=== PATIENT | female | born 1985 | race Caucasian/White ===

== ENCOUNTER 2016-08-15 12:05 | Emergency (ER) | payer BC ==
--- NOTE | 2016-08-15 12:53 | UC ---
Truncal Trauma HPI - HPI Summary HPI Summary: 4 DAYS AGO WAS CARRYING A CHAIR WITH THE LEGS POINTING TOWARD HER. TRIPPED OVER A STOOL AND A CHAIR LEG IMPACTED INTO HER RIGHT RIB CAGE. PAIN HAS GOTTEN WORSE. WORSE WITH MVMT, COUGH AND DEEP INSPIRATION. - History Of Current Complaint Chief Complaint: UCUpperExtremity Stated Complaint: RIB INJURY Time Seen by Provider: 08/15/16 12:47 Hx Obtained From: Patient Hx Last Menstrual Period: 07/11 Onset/Duration: Sudden Onset, Lasting Days, Still Present Onset Of Pain: Immediate Severity Initially: Moderate Severity Currently: Moderate Pain Intensity: 8 Pain Scale Used: 0-10 Numeric Mechanism Of Injury: Blunt Trauma Aggravating Factor(s): Movement, Deep Breathing, Cough Alleviating factor(s): Rest Associated Signs And Symptoms: Negative: SOB, Chest Pain, Cough, Hematuria, Abdominal Pain, Fever, Nausea, Vomiting - Allergies/Home Medications Allergies/Adverse Reactions: Allergies Allergy/AdvReac Type Severity Reaction Status Date / Time Penicillins [PCN] Allergy Unknown Verified 08/15/16 12:29 Reaction Details Home Medications: Home Medications NK [No Home Medications Reported] 08/15/16 [History Confirmed 08/15/16] PMH/Surg Hx/FS Hx/Imm Hx Previously Healthy: Yes Endocrine History Of: Denies: Diabetes, Thyroid Disease Cardiovascular History Of: Denies: Cardiac Disorders, Hypertension Respiratory History Of: Denies: COPD, Asthma GI/ History Of: Denies: Ulcer - Surgical History Surgical History: Yes Surgery Procedure, Year, and Place: tooth removed lt upper jaw 2010 - Family History Known Family History: Negative: Hypertension - Social History Alcohol Use: Weekly Substance Use Type: None Smoking Status (MU): Heavy Every Day Tobacco Smoker Review of Systems Constitutional: Negative Skin: Bruising Respiratory: Negative Cardiovascular: Negative Gastrointestinal: Negative Musculoskeletal: Myalgia All Other Systems Reviewed And Are Negative: Yes Physical Exam Triage Information Reviewed: Yes Appearance: Well-Appearing, No Pain Distress, Well-Nourished Vital Signs: Initial Vital Signs Temp 97.3 F 08/15/16 12:23 Pulse 78 08/15/16 12:23 Resp 18 08/15/16 12:23 BP 113/64 08/15/16 12:23 Pulse Ox 100 08/15/16 12:23 Vital Signs Reviewed: Yes Eyes: Positive: Conjunctiva Clear ENT: Positive: Hearing grossly normal Neck: Positive: Supple Respiratory Exam: Normal Cardiovascular Exam: Normal Abdomen Description: Positive: Soft Musculoskeletal: Positive: Other: - BRUISING AND TTP RIGHT ANTEROLATERAL RIBCAGE Neurological: Positive: Alert Psychological: Positive: Normal Response To Family, Age Appropriate Behavior Skin: Positive: Other - BRUISING TO RIGHT RIBCAGE ANTEROLATERALLY. Negative: rashes Diagnostics - Radiology RIGHT RIB XRAYS Xray Interpretation: No Acute Changes Radiology Interpretation Completed By: Radiologist Truncal Trauma Course/Dx - Differential Dx/Diagnosis Provider Diagnoses: RIGHT RIB CONTUSION Discharge - Discharge Plan Condition: Stable Disposition: HOME Patient Education Materials: Rib Contusion (ED) Referrals: No Primary Care Phys,NOPCP [Primary Care Provider] - Additional Instructions: CALL THE NUMBER BELOW FOR ASSISTANCE IN ESTABLISHING WITH A PCP An additional resource available to assist in finding the appropriate physician for your health care needs is the [facility] ([facility]). You may contact them by calling [phone]. BE SURE TO TAKE DEEP BREATHS TO KEEP YOUR LUNGS EXPANDED. GO TO THE ER WITHOUT FAIL IF YOUR SYMPTOMS WORSEN OR DO NOT IMPROVE OVER THE NEXT 1-2 WEEKS OR IF YOU DEVELOP SHORTNESS OF BREATH, RAPID HEART RATE, ABDOMINAL PAIN OR ANY OTHER CONCERNING SYMPTOMS.
--- NOTE | 2016-08-15 13:40 | RAD ---
INDICATION: Right rib injury. TECHNIQUE: 5 views of the right ribs were obtained. FINDINGS: No fracture or significant focal osseous abnormality is seen. IMPRESSION: NO EVIDENCE FOR FRACTURE.
== END 2016-08-15 13:55 | disposition home or self-care (01) ==
LOC: UCEAST 12:05
DX: S20.211A Contusion of right front wall of thorax, initial encounter (principal); X58.XXXA Exposure to other specified factors, initial encounter; Y93.9 Activity, unspecified; Y92.9 Unspecified place or not applicable; Z88.0 Allergy status to penicillin; F17.210 Nicotine dependence, cigarettes, uncomplicated
CPT/HCPCS: 99201; G0463

== ENCOUNTER 2017-12-14 16:19 | Emergency (ER) | payer BC ==
[2017-12-14] MEDS ORDERED: Metoclopramide IV* 5 MG/ML 2 ML VIAL IV SLOW PU ONE (16:38)
[2017-12-14] MEDS ORDERED: NS 0.9% 1000 ML* 1,000 ML IV ONE (16:38)
--- NOTE | 2017-12-14 16:45 | ED ---
GI/ HPI - HPI Summary HPI Summary: 32F LMP november 04 at 5 weeks presents with vomiting for the past 3 days. She states she took an at home test on and it came back positive. She states that she has been having vomiting in the morning for past 3 days. She states today though she can not stop vomiting. She has not been able to keep water down. She denies any abdominal pain. no vaginal bleeding, cramping, or abnormal vaginal discharge. no diarrhea. no dysuria. has not been able to keep anything down today. no medical conditions. no cough or recent illness. also is requesting folic acid and vitamins. She will be seeing ob in december. - History of Current Complaint Chief Complaint: UCGI Time Seen by Provider: 12/14/17 16:30 Stated Complaint: VOMITING Hx Last Menstrual Period: 07/11 Pain Intensity: 0 - Allergy/Home Medications Allergies/Adverse Reactions: Allergies Allergy/AdvReac Type Severity Reaction Status Date / Time Penicillins Allergy Unknown Verified 12/14/17 16:30 Reaction Details PMH/Surg Hx/FS Hx/Imm Hx Endocrine/Hematology History: Denies: Hx Diabetes, Hx Thyroid Disease Cardiovascular History: Denies: Hx Hypertension Respiratory History: Denies: Hx Asthma, Hx Chronic Obstructive Pulmonary Disease (COPD) GI History: Denies: Hx Ulcer Musculoskeletal History: Reports: Other Musculoskeletal History - fx nose 2008 - Surgical History Surgery Procedure, Year, and Place: tooth removed lt upper jaw 2010 Infectious Disease History: No Infectious Disease History: Denies: Hx Hepatitis, Hx Human Immunodeficiency Virus (HIV), Traveled Outside the [place] in Last 30 Days - Family History Known Family History: Negative: Hypertension - Social History Alcohol Use: None Substance Use Type: Reports: None Smoking Status (MU): Light Every Day Tobacco Smoker Type: Cigarettes Review of Systems Negative: Fever Negative: Chest Pain Negative: Shortness Of Breath Positive: Vomiting, Nausea. Negative: Abdominal Pain, Diarrhea All Other Systems Reviewed And Are Negative: Yes Physical Exam Triage Information Reviewed: Yes Vital Signs On Initial Exam: Initial Vitals Temp Pulse Resp BP Pulse Ox 97.5 F 73 18 95/71 100 12/14/17 16:25 12/14/17 16:25 12/14/17 16:25 12/14/17 16:25 12/14/17 16:25 Vital Signs Reviewed: Yes Appearance: Positive: Well-Appearing Skin: Positive: Warm, Dry Head/Face: Positive: Normal Head/Face Inspection Eyes: Positive: Normal, Conjunctiva Clear ENT: Positive: Pharynx normal Respiratory/Lung Sounds: Positive: Clear to Auscultation, Breath Sounds Present Cardiovascular: Positive: Normal, RRR Abdomen Description: Positive: Nontender, Soft Bowel Sounds: Positive: Present Musculoskeletal: Positive: Normal Neurological: Positive: Normal Psychiatric: Positive: Normal Diagnostics - Vital Signs Vital Signs Temp Pulse Resp BP Pulse Ox 12/14/17 16:25 97.5 F 73 18 95/71 100 - Laboratory Lab Statement: Any lab studies that have been ordered have been reviewed, and results considered in the medical decision making process. Re-Evaluation - Re-Evaluation First Eval Re-Evaluation Time: 17:26 Change: Improved Comment: feeling better after fluids and reglan GIGU Course/Dx - Course Course Of Treatment: 32F LMP november 04 presents with vomiting for the past 3 days. She states she took an at home test on and it came back positive. She states that she has been having vomiting in the morning for 3 days. She states today though she can not stop vomiting. She denies any abdominal pain. no vaginal bleeding. no diarrhea. no dysuria. has not been able to keep anything down today. no medical conditions. no cough or recent illness. on exam abd soft nontender. gave reglan and fluids and feeling better. will prescribe diclegis and reglan for break through vomiting. urine was positive. urine: negative for infection. patient understand and agrees with plan. - Diagnoses Differential Diagnoses - Female: , Urinary Tract Infection, Vomiting Provider Diagnoses: Vomiting during Discharge - Sign-Out/Discharge Documenting (check all that apply): Discharge/Admit/Transfer - Discharge Plan Condition: Good Disposition: HOME Prescriptions: Doxylamine/Pyridoxine(NF) [Diclegis (NF)] 2 tab PO BEDTIME #30 tab Folic Acid TAB* [Folvite TAB*] 1 mg PO DAILY #30 tab Metoclopramide TAB* [Reglan TAB*] 10 mg PO Q6H PRN #20 tab PRN Reason: Vomiting Vitamin TAB* 1 tab PO DAILY #30 tab Referrals: No Primary Care Phys,NOPCP [Primary Care Provider] - Additional Instructions: Take Diclegis two tablets at bedtime on day 1 and 2; if symptoms persist, take 1 tablet in morning and 2 tablets at bedtime on day 3; if symptoms persist, may increase to 1 tablet in morning, 1 tablet mid-afternoon, and 2 tablets at bedtime on day 4, max 4 tablets a day Take reglan every 6 hours for break through vomiting until Diclegis starts to work Eat a small snack throughout the day, drink liquids as tolerated Follow up with obgyn Return to ED if develop any new or worsening symptoms - Billing Disposition and Condition Condition: GOOD Disposition: HOME
== END 2017-12-14 17:35 | disposition home or self-care (01) ==
LOC: UCEAST 16:19
DX: O21.9 Vomiting of pregnancy, unspecified (principal); O99.331 Smoking (tobacco) complicating pregnancy, first trimester; F17.210 Nicotine dependence, cigarettes, uncomplicated; Z3A.01 Less than 8 weeks gestation of pregnancy; Z88.0 Allergy status to penicillin
CPT/HCPCS: 81003; 84702; 96360; 96374; 99212; G0463; J2765

== ENCOUNTER 2018-01-19 20:32 | Emergency (ER) | payer BC ==
[2018-01-19 20:52] VITALS: BP 105/60
[2018-01-19] MEDS ORDERED: Tetan/Diph/Pertus SYR(Tdap)* 0.5 ML SYR(BOOSTRIX) use SYR IM ONE (21:08)
[2018-01-19] MEDS ORDERED: Mupirocin 2% OINT* TUBE TOPICAL ONE (21:09)
--- NOTE | 2018-01-19 21:19 | UC ---
Hip/Pelvis Pain - HPI Summary HPI Summary: This is a 32-year-old female that presents here for the evaluation of 2 puncture wounds in her right lateral thigh. She was spurred by a rooster at approximately 2 PM today. Her last tetanus shot was approximately 8-10 years ago. He is almost 11 weeks . She was told she has a penicillin allergy. Her mother recalls no specifics concerning her reaction. - History Of Current Complaint Chief Complaint: UCGeneralIllness Stated Complaint: PUNCTURE WOUND Time Seen by Provider: 01/19/18 20:41 Hx Obtained From: Patient Hx Last Menstrual Period: 07/11 Onset/Duration: Sudden Onset Timing: Constant Severity Initially: Moderate Severity Currently: Mild Pain Intensity: 2 Pain Scale Used: 0-10 Numeric Location: Discrete At: Character Of Pain: Aching Aggravating Factor(s): Other - touch Alleviating Factor(s): Nothing Associated Signs And Symptoms: Positive: Other - tender - Allergies/Home Medications Allergies/Adverse Reactions: Allergies Allergy/AdvReac Type Severity Reaction Status Date / Time Penicillins Allergy Unknown Verified 12/14/17 16:30 Reaction Details PMH/Surg Hx/FS Hx/Imm Hx Previously Healthy: Yes - Surgical History Surgical History: None Surgery Procedure, Year, and Place: tooth removed lt upper jaw 2010 - Family History Known Family History: Negative: Hypertension - Social History Alcohol Use: None Substance Use Type: None Smoking Status (MU): Former Smoker Type: Cigarettes Have You Smoked in the Last Year: Yes When Did the Patient Quit Smoking/Using Tobacco: WHEN SHE FOUND OUT SHE WAS - Immunization History Most Recent Tetanus Shot: 9875-1105 Review of Systems Constitutional: Negative Skin: Negative Eyes: Negative ENT: Negative Respiratory: Negative Cardiovascular: Negative Gastrointestinal: Negative Genitourinary: Negative Motor: Negative Neurovascular: Negative Musculoskeletal: Myalgia Neurological: Negative Psychological: Negative Is Patient Immunocompromised?: No All Other Systems Reviewed And Are Negative: Yes Physical Exam Triage Information Reviewed: Yes Appearance: Well-Appearing, No Pain Distress, Well-Nourished Vital Signs: Initial Vital Signs Temp 98.4 F 01/19/18 20:42 Pulse 77 01/19/18 20:42 Resp 16 01/19/18 20:42 BP 105/60 01/19/18 20:42 Pulse Ox 100 01/19/18 20:42 Vital Signs Reviewed: Yes Eyes: Positive: Conjunctiva Clear ENT: Positive: Hearing grossly normal. Negative: Nasal congestion, Nasal drainage, Trismus, Muffled voice, Dental tenderness Dental Exam: Normal Neck: Positive: Supple Respiratory: Positive: Lungs clear, Normal breath sounds, No respiratory distress, No accessory muscle use Cardiovascular: Positive: RRR Musculoskeletal: Positive: ROM Intact, No Edema Neurological: Positive: Alert Psychological Exam: Normal Skin Exam: Other - see image Hip Injury Course/Dx - Differential Dx/Diagnosis Provider Diagnoses: two right thigh puncture wounds Discharge - Sign-Out/Discharge Documenting (check all that apply): Discharge/Admit/Transfer - Discharge Plan Condition: Stable Disposition: HOME Prescriptions: Cephalexin CAP* [Keflex CAP*] 500 mg PO QID #12 cap Patient Education Materials: Puncture Wound (ED) Referrals: No Primary Care Phys,NOPCP [Primary Care Provider] - Additional Instructions: these wounds are at risk for infection GET CHECKED FELIX FOR: increased pain increased swelling redness fever you should also get rechecked in 3 days if not better warm soapy compresses 3x day apply bactroban - Billing Disposition and Condition Condition: STABLE Disposition: Home Images Front/Back of Body, Lg ([place]): 1 - PW 2 - PW
== END 2018-01-19 21:39 | disposition home or self-care (01) ==
LOC: UCCORT 20:32
DX: O26.91 Pregnancy related conditions, unspecified, first trimester (principal); Z3A.11 11 weeks gestation of pregnancy; S71.131A Puncture wound without foreign body, right thigh, initial encounter; X58.XXXA Exposure to other specified factors, initial encounter; Y93.9 Activity, unspecified; Y92.007 Garden or yard of unspecified non-institutional (private) residence as the place of occurrence of the external cause; Z88.0 Allergy status to penicillin; Z87.891 Personal history of nicotine dependence
CPT/HCPCS: 90471; 90715; 99212; G0463

== ENCOUNTER 2018-03-11 19:58 | Emergency (ER) | payer BC, MEDICAID ==
--- NOTE | 2018-03-11 20:15 | UC ---
General HPI - HPI Summary HPI Summary: The patient is a 32 y/o F presenting to [facility] c/o not feeling well starting tonight after waking up from a nap. She had eaten two chicken salad sandwiches, which her also ate, and then she lied down for a nap. She woke up, let her dogs out, and then started feeling unwell. She had a burning sensation in her throat, and she had extreme nausea. On her way to [facility], she had lower back pain and had a pale pallor. In the parking lot, she vomited, and she has since been dry heaving. She is currently feeling better and is not in pain, but she feels dehydrated. She is 18 weeks with her first child and reports that she hasn't had any recent episodes of morning sickness because it has subsided. She had an appt with her PAYMENT SPECIALIST a week ago and an appt with a mother' s group yesterday, both of which confirmed that the baby is healthy. She also had labs drawn yesterday and everything came back normal. She has been able to feel the baby move, but she hasn't felt as much activity in the last week. She denies diarrhea (nml BM today), dysuria, and vaginal bleeding or discharge. - History of Current Complaint Stated Complaint: VOMITING Time Seen by Provider: 03/11/18 20:02 Hx Obtained From: Patient Hx Last Menstrual Period: 07/11 Onset/Duration: Sudden Onset, Lasting Hours, Still Present Onset Severity: Moderate Current Severity: Mild Aggravating: nothing Alleviating: nothing Associated Signs & Symptoms: Positive: Nausea, Vomiting - and dry heaves, Other - POSITIVE: burning sensation in throat, lower back pain, pale skin, dehydration ; NEGATIVE: dysuria, vaginal bleeding or discharge. Negative: Diarrhea, Dysuria - Allergy/Home Medications Allergies/Adverse Reactions: Allergies Allergy/AdvReac Type Severity Reaction Status Date / Time Penicillins Allergy Unknown Verified 12/14/17 16:30 Reaction Details PMH/Surg Hx/FS Hx/Imm Hx Other Endocrine History: NEGATIVE: diabetes Other Cardiovascular History: Mild murmur - Surgical History Surgical History: None Surgery Procedure, Year, and Place: tooth removed lt upper jaw 2010 - Family History Known Family History: Negative: Hypertension - Social History Alcohol Use: None Substance Use Type: None Smoking Status (MU): Former Smoker Type: Cigarettes Have You Smoked in the Last Year: Yes When Did the Patient Quit Smoking/Using Tobacco: WHEN SHE FOUND OUT SHE WAS - Immunization History Most Recent Tetanus Shot: 1084-8910 Review of Systems Constitutional: Other - dehydration Skin: Other - pale pallor ENT: Other - burning sensation in esophagus Gastrointestinal: Vomiting, Nausea, Other - POSITIVE: dry heaving; NEGATIVE: diarrhea Genitourinary: Other - NEGATIVE: vaginal bleeding or discharge, dysuria Musculoskeletal: Other: - low back pain All Other Systems Reviewed And Are Negative: Yes Physical Exam - Summary Physical Exam Summary: General: mildly ill-appearing, no pain distress Skin: warm, color reflects adequate perfusion, dry Head: normal Eyes: EOMI, DUSTY ENT: normal Neck: supple, nontender Respiratory: CTA, breath sounds present Cardiovascular: RRR Abdomen: soft, nontender, 18 weeks , tender over uterus Bowel: present Musculoskeletal: normal, strength/ROM intact Neurological: sensory/motor intact, A&O x3 Psychological: affect/mood appropriate Triage Information Reviewed: Yes Vital Signs Reviewed: Yes Course/Dx - Course Course Of Treatment: Medications reviewed. Allergies noted. FEELS IMPROVED AFTER VOMITING. DISCUSSED GOING TO THE EMERGENCY DEPARTMENT FOR EVALUATION OF HER CONDITION AND WELL BEING. NO U/S HERE IN CLINIC. MINIMAL LOWER ABD TENDERNESS TO PALPATION. NO VAGINAL DISCHARGE OR BLEEDING. NO DYSURIA; PATIENT REPORTS NORMAL UA YESTERDAY. SHE DECLINES FURTHER TREATMENT; IV FLUIDS OR ANTIEMETIC MEDICATION SHE FEELS IMPROVED. HER PLAN IS TO F/U IN THE AM WITH OBGYN; THEY WILL GO TO THE ED TONIGHT IF ANY FURTHER CONCERNS. - Differential Dx - Multi-Symptom Provider Diagnoses: VOMITING IN Discharge - Sign-Out/Discharge Documenting (check all that apply): Patient Departure - Patient will be discharged home. - Discharge Plan Condition: Stable Disposition: HOME Patient Education Materials: Nausea and Vomiting in (ED) Referrals: [facility] [Provider Group] [facility] [Outside] Additional Instructions: FOLLOW UP WITH YOUR OBGYN. GO DIRECTLY TO THE EMERGENCY DEPARTMENT FOR ANY WORSENING OF YOUR CONDITION OR QUESTIONS OR CONCERNS ABOUT YOURSELF OR YOUR . - Billing Disposition and Condition Condition: STABLE Disposition: Home Attestation Statement Scribe Attestation: This is eyal Maciel documenting for attending Dr. Lobo Martino MD. User Type: Provider with Scribe Provider Attestation: The documentation recorded by the scribe accurately reflects the service I personally performed and the decisions made by me.
[2018-03-11 20:19] VITALS: BP 110/65
== END 2018-03-11 20:50 | disposition home or self-care (01) ==
LOC: UCEAST 19:58
DX: O21.0 Mild hyperemesis gravidarum (principal); R07.0 Pain in throat; M54.5 Low back pain; Z3A.18 18 weeks gestation of pregnancy; Z88.0 Allergy status to penicillin; Z87.891 Personal history of nicotine dependence
CPT/HCPCS: 99211; G0463

== ENCOUNTER 2018-05-10 10:01 | Emergency (ER) | payer BC, MEDICAID ==
[2018-05-10 10:10] VITALS: BP 110/48
--- NOTE | 2018-05-10 12:03 | UC ---
Throat Pain/Nasal Cruz HPI - HPI Summary HPI Summary: 32-year-old woman comes in with a complaint of fever chills runny nose sore throat and cough. This all started yesterday. She vomited this morning. She is 26 weeks . She has been feeling her baby move normally she has no dysuria or vaginal discharge. She also has a headache. She did not take any medication because she is . - History of Current Complaint Chief Complaint: UCRespiratory Stated Complaint: , VOMITING, FEVER, AND SORE THROAT Time Seen by Provider: 05/10/18 11:42 Hx Last Menstrual Period: 07/11 Pain Intensity: 1 - Allergies/Home Medications Allergies/Adverse Reactions: Allergies Allergy/AdvReac Type Severity Reaction Status Date / Time Penicillins Allergy Unknown Verified 05/10/18 10:10 Reaction Details PMH/Surg Hx/FS Hx/Imm Hx Previously Healthy: Yes - Surgical History Surgical History: None Surgery Procedure, Year, and Place: tooth removed lt upper jaw 2010 - Family History Known Family History: Negative: Hypertension - Social History Alcohol Use: None Substance Use Type: None Smoking Status (MU): Former Smoker Type: Cigarettes Have You Smoked in the Last Year: Yes When Did the Patient Quit Smoking/Using Tobacco: WHEN SHE FOUND OUT SHE WAS - Immunization History Most Recent Tetanus Shot: 7387-0296 Review of Systems Constitutional: Fever, Chills Skin: Negative Eyes: Negative ENT: Sore Throat, Nasal Discharge, Sinus Congestion Respiratory: Negative Cardiovascular: Negative Gastrointestinal: Vomiting Motor: Negative Neurovascular: Negative Musculoskeletal: Negative Neurological: Negative Psychological: Negative Is Patient Immunocompromised?: No All Other Systems Reviewed And Are Negative: Yes Physical Exam Triage Information Reviewed: Yes Appearance: No Pain Distress, Well-Nourished, Ill-Appearing - MILD Vital Signs: Initial Vital Signs Temp 98.2 F 05/10/18 10:06 Pulse 101 05/10/18 10:06 Resp 18 05/10/18 10:06 BP 110/48 05/10/18 10:06 Pulse Ox 98 05/10/18 10:06 Vital Signs Reviewed: Yes Eye Exam: Normal Eyes: Positive: Conjunctiva Clear ENT: Positive: Pharyngeal erythema, Nasal congestion, Nasal drainage, TMs normal Neck exam: Normal Neck: Positive: Supple Respiratory: Positive: Lungs clear, Normal breath sounds, No respiratory distress Cardiovascular: Positive: RRR Abdomen Description: Positive: Nontender, Other: - 26 weeks Bowel Sounds: Positive: Present Musculoskeletal Exam: Normal Musculoskeletal: Positive: Strength Intact, ROM Intact Neurological Exam: Normal Neurological: Positive: Alert, Muscle Tone Normal Psychological Exam: Normal Psychological: Positive: Normal Response To Family, Age Appropriate Behavior Skin Exam: Normal Throat Pain/Nasal Course/Dx - Course Course Of Treatment: Rapid strep was negative. We discussed treatment with Reglan for nausea and acetaminophen for the pain. Patient declined a Reglan she prefers to try debbi for the nausea. Has viral versus bacterial infections. At this time with a negative rapid strep we will treat this as a viral infection. Patient will follow up with her CRYSTAL[facility]ER OPERATOR or return here sooner if needed. - Differential Dx/Diagnosis Provider Diagnoses: Upper respiratory tract infection. VOMITING Discharge - Sign-Out/Discharge Documenting (check all that apply): Patient Departure All imaging exams completed and their final reports reviewed: No Studies - Discharge Plan Condition: Stable Disposition: HOME Patient Education Materials: Upper Respiratory Infection (ED), Nausea and Vomiting in (ED) Referrals: [facility] [Outside] Additional Instructions: FOLLOW UP WITH YOUR DOCTOR IF NOT COMPLETELY IMPROVED. GET RECHECKED FOR ANY WORSENING OF YOUR CONDITION OR QUESTIONS OR CONCERNS. - Billing Disposition and Condition Condition: STABLE Disposition: Home
== END 2018-05-10 12:09 | disposition home or self-care (01) ==
LOC: UCEAST 10:01
DX: O98.812 Other maternal infectious and parasitic diseases complicating pregnancy, second trimester (principal); J06.9 Acute upper respiratory infection, unspecified; Z88.0 Allergy status to penicillin; Z87.891 Personal history of nicotine dependence; Z3A.26 26 weeks gestation of pregnancy
CPT/HCPCS: 87651; 99211; G0463

== ENCOUNTER 2018-08-14 06:05 | Inpatient (IN) | payer BC, MEDICAID ==
[2018-08-14] MEDS ORDERED: Lactated Ringers 1000 ML Bag* 1,000 ML IV ONE ×2 (07:14→17:10)
[2018-08-14] MEDS ORDERED: Buffered Lidocaine 1% SYRIN* 1 ML/SYRINGE INTRADERM ONE (07:14)
--- NOTE | 2018-08-14 07:26 | HP ---
General Information - Reason for Visit Patient reported leaking fluid since last night approx 1999. Mild cramping. - General Information Maternal Age: 32 Grav: 2 Para: 0 SAB: 0 IEA: 1 Estimated Due Date: 08/11/18 Determined By: LMP Maternal Blood Type and Rh: O Positive - Results this Serology/RPR Result: Non-Reactive Rubella Result: Immune HBsAg Result: Negative HIV Result: Negative GBS Culture Result: Negative Past Medical History Delivery History: See Records Delivery History Comment: No previous term pregnancies Pertinent Past Medical History: See Records Past Medical History Comment: depression/anxiety alcoholism, sober since 11/10 Ulcers, not currently a problem Pertinent Past Surgical History: None Pertinent Family History: Non-Contributory Family History Comment: breast ca liver ca pancreatitis heart dz - Antepartal Records Antepartal Records: Reviewed, Complicated by: - LSIL Pap, normal on repeat. [facility] Z[place] testing negative. Review of Systems Constitutional: Comfortable CV Complaint: No Respiratory: Shortness of Breath: No Gastrointestinal: No Nausea/Vomiting, Normal Bowel Movement Genitourinary: Leaking Fluid, No Dysuria, No Bleeding Musculoskeletal: No Complaint Neurological: No Headache, No Visual Changes Movement: Normal Exam Allergies/Adverse Reactions: Allergies Penicillins Allergy (Verified 05/10/18 10:10) Unknown Reaction Details Vital Signs 08/14/18 06:38 Temperature 97.3 F Pulse Rate 87 Respiratory 18 Rate Blood Pressure 131/77 (mmHg) O2 Sat by Pulse 99 Oximetry Lab Values - Entire Visit: Laboratory Tests 08/14/18 06:15 Vag Amniotic Fld Detect Positive - Measurements Height: 5 ft 3 in Weight: 157 lb Weight in lbs: 157.612015 Body Mass Index (BMI): 27.8 Pre- Weight: 105 lb - Exam Breast: Breast Exam Deferred CVA: No CVA Tenderness Extremities: No Edema Heart: Normal Rhythm/Heart Sounds HEENT: No Significant Findings Lungs: Clear Bilaterally Rectal: Rectal Exam Deferred Reflexes: - - DTR 1+, no clonus Thyroid: - - WNL @ entry to care - Abdominal Exam Abdomen Exam: Non-Tender, Fundal Height Consistent with Dates - Ultrasound/Biophysical Profile Ultrasound Status: Not Done Targeted Exam Findings See L&D Outpatient Visit Provider Note for Findings: N/A Estimated Weight: 7.5lb Cervical Exam: 2cm Effacement: 90% Station: 0 Presenting Part: Vertex Membrane Status: Leaking Amniotic Fluid Evaluation: Positive ROM Plus Bleeding/Discharge: None EFM Findings - External Monitor Findings Baseline Heart Rate: 125 External Monitor Findings: Accelerations Present, No Pattern of Variable or Late Decelerations, Variability Moderate Contractions: Irregular, Mild, < 45 Seconds Contraction Frequency: Q3-7 min Assessment/Plan - Assessment IUP @ 40+3 weeks gestation with ruptured membranes. No evidence metabolic acidemia. Latent labor. - Plan Plan: Admit - Anticipate Vaginal Delivery Plan Comment: Admit to L&D. Given timeframe of rupture, suggest augmentation with pitocin, PARQ discussion and patient in agreement. Would like to wait "as long as possible" for pain medication but open to epidural if desired. Anticipate SVB - Date/Time of Admission Date of Admission: 08/14/18 Time of Admission: 06:57
[2018-08-14] MEDS ORDERED: Oxytocin in LR* 20 UNITS/1,000 ML BAG IVPB SCH (08:00)
[2018-08-14 09:06] LABS: ABS Basophils 0.1 10^3/ul (0-0.2); ABS Eosinophils 0.1 10^3/ul (0-0.6); ABS Lymphocytes 1.4 10^3/ul (1.0-4.8); ABS Monocytes 0.7 10^3/ul (0-0.8); ABS Neutrophils 8.8 10^3/ul (1.5-7.7); ABS Nucleated RBC 0 10^3/ul; Eosinophil % 0.7 %; Hematocrit 31 % (35-47); Hemoglobin 10.6 g/dl (12.0-16.0); Lymphocyte % 12.6 %; Mean Corpuscular HGB Conc 34 g/dl (31-36); Mean Corpuscular Hemoglobin 32 pg (27-31); Mean Corpuscular Volume 93 fL (80-97); Mean Platelet Volume 8.9 fL (7.4-10.4); Nucleated Red Blood Cells % 0; Platelet Count 258 10^3/ul (150-450); Red Blood Count 3.34 10^6/ul (4.00-5.40); Red Cell Distribution Width 14 % (10.5-15); White Blood Count 11.1 10^3/ul (3.5-10.8)
[2018-08-14] MEDS: Famotidine TAB* 20 MG PO PRN (09:53)
[2018-08-14] MEDS: Lactated Ringers 1000 ML Bag* 1,000 ML IV SCH ×2 (09:56→17:06)
--- NOTE | 2018-08-14 10:23 | PN ---
Progress Note - Progress Note Date of Service: 08/14/18 SOAP: Subjective: Pt comfortable through ctx, increasingly aware of them but coping well. She reports feeling anxious and nervous about labor and . She reports being particularly nervous about tearing during delivery. Reassurance provided, discussed gentle pushing with to allow perineum to stretch. Objective: Cervical exam deferred FHR Cat I-135, + accels, no decels, moderate variability UCs 2-4 minutes, mild to moderate per palpation Pitocin at 4 mu/ min Clear fluid ROM 16 hours Temp- 97.0 Assessment: 32 year old at 40 3/7 weeks gestation undergoing augmentation of labor for prelabor rupture of membranes, no evidence of chorioamnionitis, no evidence of acidemia Plan: Continue Pitocin augmentation Continue to monitor for signs of infection Will wait to recheck cervix for now unless pt desiring pain medication, or experiencing urge to push
--- NOTE | 2018-08-14 13:33 | PN ---
Progress Note - Progress Note Date of Service: 08/14/18 SOAP: Subjective: Pt increasingly uncomfortable with ctx. Pt used tub with some relief, but requested something else for pain. After discussing options, pt elects trial of nitrous oxide. Objective: Cervix: 3-4 cm/ 80%/ +1 station Ctx:2-3 minutes, lasting 90 seconds FHR: 135 baseline, moderate variability, + accels, no decels Fluid clear, ROM 18 hours Assessment: 32 year old with prelabor rupture of membranes, in active labor, no evidence of acidemia Plan: Pitocin turned off, can restart if ctx space out too much. Nitrous oxide per protocol Epidural if desired
--- NOTE | 2018-08-14 15:02 | PN ---
Progress Note - Progress Note Date of Service: 08/14/18 SOAP: Subjective: [] Objective: [] Assessment: [] Plan: []
--- NOTE | 2018-08-14 16:04 | PN ---
Progress Note - Progress Note Date of Service: 08/14/18 Note: Pt more uncomfortable. Cervix: 5cm/ 100%/ +1 station. FHR Cat I. Pt requesting epidural. Dr. Dexter notified.
[2018-08-14] MEDS ORDERED: OBEPIDURAL* 250 ML EPIDURAL ONE (16:09)
[2018-08-14] MEDS ORDERED: Phenylephrine IV* 40 MCG/ML 10 ML SYRINGE ONE (16:54)
[2018-08-14] MEDS ORDERED: Famotidine TAB* 20 MG PO PRN (17:10)
[2018-08-14] MEDS ORDERED: EPHEDrine (Pressors)* 50 MG/ML VIAL IV PUSH PRN ×2 (17:10)
[2018-08-14] MEDS ORDERED: Phenylephrine IV* 40 MCG/ML 10 ML SYRINGE IV PUSH PRN ×2 (17:10)
[2018-08-14] MEDS ORDERED: Sodium Citrate/Citric Acid* 15 ML UDC PO PRN (17:10)
--- NOTE | 2018-08-14 17:53 | PN ---
Progress Note - Progress Note Date of Service: 08/14/18 SOAP: Subjective: Pt very comfortable with epidural, going to try to sleep. Objective: FHR: baseline 140, moderate variability, + accels, no decels UCs 3-5 minutes Cervical exam deferred Clear fluid Temp 97.8 Assessment: Pt comfortable with epidural, no evidence of acidemia. Prelabor rupture of membranes, no evidence of chorioamnionitis. Plan: Pt to try to rest. Will consider Pitocin as needed. Anticipate .
[2018-08-14] MEDS ORDERED: Lactated Ringers 1000 ML Bag* 1,000 ML IV SCH (18:00)
--- NOTE | 2018-08-14 20:41 | PN ---
Progress Note - Progress Note Date of Service: 08/14/18 SOAP: Subjective: Pt comfortable overall. Had episode of vomiting but now feels okay. Reports some increased pressure with ctx. Most recent exam by RN found pt to be 8cm. Objective: FHR: baseline 140/ no accels/ some early decels/moderate variability UCs: 2-4 minutes Clear fluid, ruptured > 24 hours Temp 98.8 Assessment: 32 year old in active labor with prolonged rupture of membranes, no evidence of chorioamnionitis, no evidence of acidemia. Plan: Continue expectant management, will begin pushing when pt fully dilated. Anticipate .
[2018-08-14] MEDS ORDERED: Ondansetron INJ* 2 MG/ML VIAL IV ONE (23:06)
[2018-08-14] MEDS ORDERED: Ondansetron INJ* 2 MG/ML VIAL ONE (23:14)
--- NOTE | 2018-08-14 23:31 | PN ---
Progress Note - Progress Note Date of Service: 08/14/18 SOAP: Subjective: Pt reports increased pressure, including rectal pressure. Denies urge to push. Pt also reports significant nausea, unresolved even after vomiting. Objective: Cervix: 9cm/ 100%/ +1 FHR: Baseline 150/ moderate variability/ + accels/ isolated variable decel and intermittent early decels UCs: 2-3 minutes Clear fluid Assessment: 32 year old at 40 3/7 weeks gestation, in active labor, almost ready to push. Plan: Will recheck cervix in 1 hour or when pt experiences urge to push. Anticipate .
--- NOTE | 2018-08-15 01:02 | PN ---
Progress Note - Progress Note Date of Service: 08/15/18 SOAP: Subjective: Pt very nauseous, especially immediately after each push. Pushing with good effort. Objective: FHR: baseline 160, with intermittent early, late and variable decelerations UCs Q 1-3 minutes Moderate descent with pushing noted. Temp 99.5 Assessment: Pt pushing effectively, but she is fatigued. FHR baseline rising but still within normal range. Temperature within normal range but increased from previous. Normal fatigue vs early signs of infection. Plan: Continue pushing with support and encouragement. Continue to monitor temperature.
--- NOTE | 2018-08-15 04:09 | PN ---
Progress Note - Progress Note Date of Service: 08/15/18 Note: Called to assist with repair of partial 3rd degree perineal tear. The severed fibers of the capsule were reapproximated with a [id number] suture of 3-0 vicryl. The rest of the repair was then done with 3-0 vicryl in the usual fashion. Good hemostasis at end of repair.
[2018-08-15] MEDS ORDERED: Dibucaine 1% 28.35 GM TUBE PR PRN (05:17)
[2018-08-15] MEDS ORDERED: Glycerin ADULT SUPP PR PRN (05:17)
[2018-08-15] MEDS ORDERED: Witch Hazel PAD* JAR TOPICAL PRN (05:17)
[2018-08-15] MEDS ORDERED: Lactated Ringers 1000 ML Bag* 1,000 ML IV SCH (06:00)
[2018-08-15] MEDS ORDERED: Oxytocin in LR* 20 UNITS/1,000 ML BAG IVPB SCH (06:00)
[2018-08-15] MEDS: Ibuprofen TAB* 600 MG PO PRN ×3 (07:53→22:57)
[2018-08-15] MEDS: Docusate CAP* 100 MG PO SCH ×3 (07:53→22:57)
[2018-08-15] MEDS: Famotidine TAB* 20 MG PO PRN (07:53)
--- NOTE | 2018-08-15 11:38 | PROCNOTE ---
[facility] OB: Delivery Note - Delivery A Date of : 08/15/18 Time of : 03:31 [place] Sex: Male Weight at : 3.62 kg Score 1 Minute: 8 Score 5 Minutes: 9 Gestational Age in Weeks and Days at Delivery: 40 Weeks and 4 Days Delivery Method: Spontaneous Vaginal Labor: Spontaneous Did Patient attempt ?: N/A, No Previous Amniotic Fluid: Clear Anesthesia/Analgesia: CEI for Labor Delivered By: Cathy Gage - Nursery Level of Nursery: Regular/Bedside - Perineum Perineal Injury: 3rd Degree Extension Perineal Repair: Dr. Olivas - Events Delivery Events of Note: Pitocin During Labor, Pushed > 3 Hours, ROM > 24 Hours - Additional Delivery Notes Additional Delivery Notes: Pt admitted to labor and delivery in early labor with ruptured membranes. As membranes had been ruptured for >12 hours at admission, pt agreed to augmentation of labor with Pitocin. Pt made steady progress in dilation. Eventually contractions increased in strength and frequency and Pitocin was discontinued. Initially used position changes, hydrotherapy and nitrous oxide to cope with labor pain, but eventually requested and received an epidural with good pain relief. Pt continued to progress. Eventually pt reached full dilation and experienced increased pressure and urge to push. Pt coached with pushing and made slow but steady progress. Pt became very fatigued but continued to push with good effort and eventually brought infant to . Pt coached through slow, controlled delivery of the head. Shoulders followed with next push , tight, but no special maneuvers required. placed on maternal abdomen with good tone, HR > 100. As he was being dried and stimulated he began to cry vigorously. After cord pulsation ceased, cord clamped x2 and cut by 's father. Placenta soon followed, spontaneous and hitesh. Fundus firm, minimal bleeding noted. Pitocin increased to 250 cc/ hr. Perineal examination revealed partial 3rd degree laceration. Dr. Olivas called to bedside to perform repair. Pt and stable at this time, anticipate normal course.
[2018-08-15] MEDS: Acetaminophen TAB* 325 MG PO PRN ×2 (13:06→19:31)
[2018-08-16] MEDS: Ibuprofen TAB* 600 MG PO PRN ×3 (04:47→18:44)
[2018-08-16] MEDS: Acetaminophen TAB* 325 MG PO PRN ×4 (04:47→20:34)
[2018-08-16 06:34] LABS: ABS Basophils 0.1 10^3/ul (0-0.2); ABS Eosinophils 0.1 10^3/ul (0-0.6); ABS Lymphocytes 1.8 10^3/ul (1.0-4.8); ABS Neutrophils 14.1 10^3/ul (1.5-7.7); ABS Nucleated RBC 0 10^3/ul; Eosinophil % 0.5 %; Hematocrit 29 % (35-47); Hemoglobin 9.6 g/dl (12.0-16.0); Lymphocyte % 10.5 %; Mean Corpuscular HGB Conc 34 g/dl (31-36); Mean Corpuscular Hemoglobin 32 pg (27-31); Mean Corpuscular Volume 94 fL (80-97); Mean Platelet Volume 9.4 fL (7.4-10.4); Nucleated Red Blood Cells % 0; Platelet Count 215 10^3/ul (150-450); Red Blood Count 3.04 10^6/ul (4.00-5.40); Red Cell Distribution Width 14 % (10.5-15); White Blood Count 17.1 10^3/ul (3.5-10.8)
[2018-08-16] MEDS: OBEPIDURAL* 250 ML EPIDURAL SCH ×2 (07:29→07:30)
[2018-08-16] MEDS: Ferrous Gluconate TAB* 324 MG TAB PO SCH ×2 (09:07→20:24)
[2018-08-16] MEDS: Docusate CAP* 100 MG PO SCH ×3 (09:07→20:24)
[2018-08-17] MEDS: Ibuprofen TAB* 600 MG PO PRN ×2 (01:06→06:41)
[2018-08-17] MEDS: Ferrous Gluconate TAB* 324 MG TAB PO SCH (08:25)
[2018-08-17] MEDS: Docusate CAP* 100 MG PO SCH (08:25)
[2018-08-17] MEDS: Acetaminophen TAB* 325 MG PO PRN (08:25)
[2018-08-17 08:57] VITALS: BP 117/68
== END 2018-08-17 11:25 | disposition home or self-care (01) | DRG 542 ==
LOC: MCHOBOUT 06:05 → MCHOB 06:57
PROVIDERS: ADMIT Midwife; ATTEND Midwife
PROC: 10E0XZZ Delivery of Products of Conception, External Approach (ICD-10-PCS; principal; 2018-08-15)
PROC: 0DQR0ZZ Repair Anal Sphincter, Open Approach (ICD-10-PCS; 2018-08-15)
DX: O48.0 Post-term pregnancy (principal); Z37.0 Single live birth; O70.20 Third degree perineal laceration during delivery, unspecified; O99.344 Other mental disorders complicating childbirth; F41.8 Other specified anxiety disorders; O90.81 Anemia of the puerperium; D64.9 Anemia, unspecified; Z3A.40 40 weeks gestation of pregnancy
CPT/HCPCS: 36415; 84112; 85025; 86850; 86900; 86901; A9270-GY; J2405

== ENCOUNTER 2018-09-13 12:16 | Emergency (ER) | payer BC, MEDICAID ==
[2018-09-13 15:36] VITALS: BP 134/43
[2018-09-13 16:00] LABS: Influenza A Molecular NEGATIVE (Negative); Influenza B Molecular NEGATIVE (Negative)
--- NOTE | 2018-09-13 16:04 | ED ---
Throat Pain/Nasal Congestion - HPI Summary HPI Summary: 32 year old female presents with sore throat since last night. She is concerned because she has a 3 week old at home. she denies any fever. she admits to sinus congestion. no cough. no chest pain or SOB. no abdominal pain, n/v/d. child was sick with viral illness. has no medical conditions. - History of Current Complaint Chief Complaint: UCGeneralIllness Time Seen by Provider: 09/13/18 15:40 - Allergies/Home Medications Allergies/Adverse Reactions: Allergies Allergy/AdvReac Type Severity Reaction Status Date / Time Penicillins Allergy Unknown Verified 09/13/18 15:36 Reaction Details PMH/Surg Hx/FS Hx/Imm Hx Endocrine/Hematology History: Denies: Hx Diabetes, Hx Thyroid Disease Cardiovascular History: Denies: Hx Hypertension Respiratory History: Denies: Hx Asthma, Hx Chronic Obstructive Pulmonary Disease (COPD) GI History: Denies: Hx Ulcer History: Denies: Hx Kidney Infection, Other Problems/Disorders Musculoskeletal History: Reports: Other Musculoskeletal History - fx nose 2008 Psychiatric History: Reports: Hx Anxiety, Hx Depression Denies: Other Psychiatric Issues/Disorders - Surgical History Surgery Procedure, Year, and Place: tooth removed lt upper jaw 2010 Infectious Disease History: No Infectious Disease History: Denies: Hx Hepatitis, Hx Human Immunodeficiency Virus (HIV), Traveled Outside the [place] in Last 30 Days - Family History Known Family History: Negative: Hypertension - Social History Alcohol Use: None Alcohol Amount: hx of alcoholism, sober since october 2016 Substance Use Type: Reports: None Smoking Status (MU): Former Smoker Type: Cigarettes Have You Smoked in the Last Year: Yes Review of Systems Negative: Fever Positive: Sore Throat, Nasal Discharge Negative: Chest Pain Negative: Shortness Of Breath, Cough All Other Systems Reviewed And Are Negative: Yes Physical Exam Triage Information Reviewed: Yes Vital Signs On Initial Exam: Initial Vitals Temp Pulse Resp BP Pulse Ox 97.6 F 73 18 134/43 98 09/13/18 15:33 09/13/18 15:33 09/13/18 15:33 09/13/18 15:33 09/13/18 15:33 Vital Signs Reviewed: Yes Appearance: Positive: Well-Appearing Skin: Positive: Warm, Dry Head/Face: Positive: Normal Head/Face Inspection Eyes: Positive: Normal, EOMI, DUSTY, Conjunctiva Clear ENT: Positive: Pharyngeal erythema, TMs normal, Uvula midline, Other - soft palate symmetric. Negative: Tonsillar swelling, Tonsillar exudate, Trismus, Muffled voice Respiratory/Lung Sounds: Positive: Clear to Auscultation, Breath Sounds Present Cardiovascular: Positive: Normal, RRR Abdomen Description: Positive: Nontender, Soft Bowel Sounds: Positive: Present Musculoskeletal: Positive: Normal Neurological: Positive: Normal Psychiatric: Positive: Normal Diagnostics - Vital Signs Vital Signs Temp Pulse Resp BP Pulse Ox 09/13/18 15:33 97.6 F 73 18 134/43 98 - Laboratory Lab Results: Lab Results 09/13/18 09/13/18 Range/Units 15:46 15:48 Influenza A (Rapid) Negative (Negative) Influenza B (Rapid) Negative (Negative) Group A Strep Rapid Negative (Negative) Lab Statement: Any lab studies that have been ordered have been reviewed, and results considered in the medical decision making process. EENT Course/Dx - Course Course Of Treatment: 32 year old female presents with sore throat since last night. She is concerned because she has a 3 week old at home. she denies any fever. she admits to sinus congestion. no cough. no chest pain or SOB. no abdominal pain, n/v/d. child was sick with viral illness. has no medical conditions. on exam has erythematous throat. uvula midline. soft palate symmetric. flu neg strept neg. patient is in pre-htn range so can follow up with primary about such. told to treat supportatively. patient understand and agrees with plan. - Differential Diagnoses Differential Diagnoses: Pharyngitis, Tonsilitis, URI/Bronchitis - Diagnoses Provider Diagnoses: Pharyngitis Discharge - Sign-Out/Discharge Documenting (check all that apply): Patient Departure All imaging exams completed and their final reports reviewed: No Studies - Discharge Plan Condition: Good Disposition: HOME Patient Education Materials: Pharyngitis (ED) Referrals: [facility] [place] [facility]ICIAN REFERRAL [Outside] Additional Instructions: Take Tylenol or ibuprofen for pain every 6 hours Use saline spray in nose as much as needed for nasal congestion Can gargle salt water Can use cough drops or products such as cloraseptic spray Establish care with primary care physician Return to ED if develop any new or worsening symptoms - Billing Disposition and Condition Condition: GOOD Disposition: Home - Attestation Statements Provider Attestation: I was available for consult. This patient was seen by the NAYELY. The patient was not presented to, seen by, or examined by me. -Jesica
== END 2018-09-13 16:40 | disposition home or self-care (01) ==
LOC: UCEAST 12:16
DX: J02.9 Acute pharyngitis, unspecified (principal); Z88.0 Allergy status to penicillin; Z87.891 Personal history of nicotine dependence
CPT/HCPCS: 87651; 99211; G0463

== ENCOUNTER 2021-06-17 11:57 | Inpatient (IN) ==
[2021-06-17 13:58] LABS: Rapid COVID-19 Molecular Undetected (Undetected)
[2021-06-17 14:13] LABS: Urine Benzodiazepine Screen None Detected (None Detect); Urine Cannabinoids Screen None Detected (None Detect); Urine Opiates Screen None Detected (None Detect)
[2021-06-17] MEDS: Lactated Ringers 1000 ml BAG 1,000 ML IV ONE ×2 (23:23→23:39)
[2021-06-17 23:28] LABS: ABS Eosinophils 0.1 10^3/ul (0-0.6); ABS Lymphocytes 1.8 10^3/ul (1.0-4.8); ABS Monocytes 0.8 10^3/ul (0-0.8); ABS Neutrophils 10.5 10^3/ul (1.5-7.7); Eosinophil % 0.5 %; Hematocrit 36 % (35-47); Hemoglobin 11.9 g/dL (12.0-16.0); Lymphocyte % 13.9 %; Mean Corpuscular HGB Conc 34 g/dL (31-36); Mean Corpuscular Hemoglobin 31 pg (27-31); Mean Corpuscular Volume 92 fL (80-97); Mean Platelet Volume 9.8 fL (7.4-10.4); Platelet Count 237 10^3/uL (150-450); Red Blood Count 3.85 10^6 /uL (3.70-4.87); Red Cell Distribution Width 14 % (10-15); White Blood Count 13.2 10^3/uL (3.5-10.8)
[2021-06-17] MEDS ORDERED: OBEPIDURAL 250 ML EPIDURAL ONE (23:46)
[2021-06-18] MEDS ORDERED: Phenylephrine 40 mcg/mL 10mL (400mcg) SYRINGE IV PUSH PRN (00:35)
[2021-06-18] MEDS ORDERED: Lactated Ringers 1000 ml BAG 1,000 ML IV ONE (00:35)
[2021-06-18] MEDS ORDERED: Lactated Ringers 1000 ml BAG 500 ML IV PRN (00:35)
[2021-06-18] MEDS ORDERED: EPHEDrine (Pressors) 50 MG/ML VIAL IV PUSH PRN (00:35)
[2021-06-18] MEDS ORDERED: Sodium Citrate/Citric Acid LIQ 15 ML UDC PO PRN (00:35)
[2021-06-18] MEDS ORDERED: OBEPIDURAL 250 ML EPIDURAL SCH (01:00)
[2021-06-18] MEDS ORDERED: Lactated Ringers 1000 ml BAG 1,000 ML IV SCH ×2 (01:00→02:00)
[2021-06-18] MEDS ORDERED: Oxytocin in LR 20 UNITS/1,000 ML BAG IVPB ONE (01:01)
[2021-06-18] MEDS ORDERED: Witch Hazel PAD JAR ONE ×2 (01:17→01:21)
[2021-06-18] MEDS ORDERED: Dibucaine 1% OINT 28.35 GM TUBE ONE (01:17)
[2021-06-18] MEDS ORDERED: Dibucaine 1% OINT 28.35 GM TUBE PR PRN (01:31)
[2021-06-18] MEDS ORDERED: Glycerin ADULT 2.4 gm SUPP PR PRN (01:31)
[2021-06-18] MEDS ORDERED: Witch Hazel PAD JAR TOPICAL PRN (01:31)
[2021-06-18] MEDS ORDERED: Oxytocin in LR 20 UNITS/1,000 ML BAG IVPB SCH (02:00)
[2021-06-18] MEDS ORDERED: Lidocaine 1% VIAL 10 MG/ML VIAL ONE (04:06)
[2021-06-19 06:30] LABS: ABS Basophils 0.1 10^3/ul (0-0.2); ABS Eosinophils 0.1 10^3/ul (0-0.6); ABS Lymphocytes 1.8 10^3/ul (1.0-4.8); ABS Monocytes 0.6 10^3/ul (0-0.8); ABS Neutrophils 8.3 10^3/ul (1.5-7.7); Eosinophil % 0.6 %; Hematocrit 31 % (35-47); Hemoglobin 10.6 g/dL (12.0-16.0); Lymphocyte % 16.4 %; Mean Corpuscular HGB Conc 34 g/dL (31-36); Mean Corpuscular Hemoglobin 31 pg (27-31); Mean Corpuscular Volume 93 fL (80-97); Mean Platelet Volume 9.6 fL (7.4-10.4); Platelet Count 199 10^3/uL (150-450); Red Cell Distribution Width 14 % (10-15); White Blood Count 10.7 10^3/uL (3.5-10.8)
[2021-06-19 08:24] VITALS: BP 104/58
== END 2021-06-19 14:35 | disposition home or self-care (01) | DRG 560 ==
LOC: MCHOBOUT 11:57 → MCHOB 12:26
PROVIDERS: ADMIT Midwife; ATTEND Midwife